=== PATIENT | male | born 1950 | race Caucasian/White ===

== ENCOUNTER 2025-03-03 08:35 | Observation (INO) | payer MEDICARE, BC ==
[2025-02-24 14:00] LABS: MEAN PLATELET VOLUME 7.5 FL (7.4-10.4); PRE OP HEMATOCRIT 40.8 % (42.0-52.0); PRE OP HEMOGLOBIN 13.6 g/dL (14.0-17.9); PRE OP PLATELET COUNT 318 X10'3 (140-440); PRE OP WHITE BLOOD COUNT 6.9 10'3 (4.8-10.8); RED CELL DISTRIBUTION WIDTH 14.5 % (11.5-14.5)
--- NOTE | 2025-02-24 14:06 | ELECTROCARDIOGRAPH REPORT ---
[facility] Test Date: 2025-02-24 Test Time: 14:03:54 Pat Name: GARY AMAYA Department: [facility]-PRE-OP Patient ID: [id number] Room: Gender: M [employer] Attendant: : 1950 Requested By: NATALIIA ROBERTS Order Number: [id number] Reading MD: Dr. GER Cline Measurements Intervals Martin Rate: 54 P: 49 AR: 156 QRS: 52 QRSD: 95 T: 46 QT: 476 QTc: 452 Interpretive Statements Sinus bradycardia Abnormal R-wave progression, early transition Electronically Signed On 02-24-2025 17:29:[address] GER Cline Please click the below link to view image of tracing.
[2025-02-24 14:19] LABS: CREATININE 0.98 MG/DL (0.60-1.10); PRE OP ALT 53 U/L (30-65); PRE OP ANION GAP 7 (8-16); PRE OP AST 36 U/L (10-37); PRE OP BILIRUB, TOTAL 0.5 MG/DL (0.0-1.0); PRE OP GLUCOSE 86 MG/DL (70-104); PRE OP POTASSIUM 4.2 MMOL/L (3.4-5.1); PRE OP SODIUM 141 MMOL/L (135-145); TOTAL CARBON DIOXIDE 28.9 MMOL/L (24-32); eGFR 75 ML/MIN
[~2025-03-03] VITALS: Ht 165.1 cm; Wt 70.9 kg
[2025-03-03] VITALS (21 sets, daily range): BP systolic 105–186; BP diastolic 54–100; PULSE 56–96; RESP 11–18; TEMP 96.3–98.4; O2SAT 75–100
[2025-03-03] MEDS: ceFAZolin 2gm/dext,iso 50mL 50 ML IV ONE (05:30)
[~2025-03-03 08:35] MED LIST: ASPI-10 PO; ATOR20TA PO; CHOND PO; GLUC PO; PANT40TA54 PO; SILD100T PO; [UNRECOGNIZED DRUG - OTHER] PO
[2025-03-03] MEDS: ringers solution, lacted 1,000 ML IV SCH ×2 (09:27→14:50)
[2025-03-03] MEDS ORDERED: BUPIVAcaine 2.5mg/ml inj 50ml vial (contains preservative) ONE ×2 (10:11→10:31)
[2025-03-03] MEDS ORDERED: BUPIVACAINE liposomal/PF 13.3 MG/ML 10mL vial IM ONE (10:29)
[2025-03-03] MEDS ORDERED: heparin 10,000 units/1 ML INJ ONE (11:00)
[2025-03-03] MEDS ORDERED: midazolam 1 mg/ML 2ml injection ONE (11:20)
[2025-03-03] MEDS ORDERED: rocuronium 10mg/ml inj IV ONE (11:41)
[2025-03-03] MEDS ORDERED: LIDOcaine 2% (20mg/ml) 5ml vial ONE (11:41)
[2025-03-03] MEDS ORDERED: dexamethasone sod phosphate 4mg/ml inj. ONE (11:41)
[2025-03-03] MEDS ORDERED: fentaNYL /PF 50mcg/ml 5ml ampule ONE (11:41)
[2025-03-03] MEDS ORDERED: ondansetron/PF 4mg/2ml inj ONE (11:41)
[2025-03-03] MEDS ORDERED: propofol inj 20 ML IV ONE (11:41)
[2025-03-03] MEDS ORDERED: glycopyrrolate 0.2mg/ml inj ONE (14:36)
[2025-03-03] MEDS ORDERED: mag hydrox/Alum hydrox/simeth 30ml oral suspension PO PRN (14:40)
[2025-03-03] MEDS ORDERED: HYDROcodone/acetaminophen 5mg/325mg tablet PO PRN (14:40)
[2025-03-03] MEDS ORDERED: HYDROmorphone inj. 0.5 MG/0.5 ML DISP.SYRIN IV PRN (14:40)
[2025-03-03] MEDS ORDERED: magnesium hydroxide 30ml (MOM) UD suspension PO PRN (14:40)
--- NOTE | 2025-03-03 14:44 | OPERATIVE REPORT ---
Operative Report Providers to ~ Date of Procedure: Mar 03, 2025 Pre-Operative Diagnosis: Prostate cancer Post-Operative Diagnosis SAME as PRE-Op Procedure Performed Robotic assisted radical prostatectomy. Surgeon: MD Christine Web Consultant PEDRO Armando perkins, MD Anesthesiologist: Armani Valerio Type of Anesthesia: General Findings: Prostate removed without issue. Complications None Prosthetics\Implants used: None Estimated Blood Loss: Less then 25 mL Specimen Removed: Prostate Description of Procedure: Patient was brought to the operating room, given a general anesthetic, and placed in the supine position. He was prepped and draped in the normal sterile fashion. A timeout was performed. A boyer catheter was placed. An incision was made above the umbilicus. Verass needle was used the insuflate the abdomen. Then an 8 ir[place]i robotic port was placed. We then placed 3 more robotic ports lateral to the median port. On the right a 12 iraqi offset assistant press operator port was placed under direct visualization. The patient was put into steep trendelenburg and the robot was docked. With the robot docked I used sharp dissection to drop the sigmoid colon. Once the sigmoid colon was dropped I made an incision in the peritoneum posteriorly and dissected to the seminal vesicles and vas deferns bilaterally. Once I was there I was able to dissect the posterior plan. Vas deferns were dissected bilaterally. I next turned my attention to the bladder. I dropped the bladder and approached the prostate from above opening the endopelvic fascia bilaterally with sharp dissection. Once this was completed and all pelvic floor muscles were brushed off the prostate I next turned to taking the bladder neck. Electrocautery was u sed to dissect the bladder neck until the catheter was reached, at which point the catheter was pulled up and the posterior bladder neck was dissected. Seminal vesicles and vas deferns bilaterally were both pulled up at this point. I next continued fully dissecting the posterior. The pedicles were taken at this point and the nerves were spared. I then used sharp dissection to take the dorsal venous complex, using a 3-0 v-lock suture to close the sinuses. The rest of the urethra was then taken with sharp dissection. The prostate was now free and moved out of the way, and double armed 3-0 v-loc suture was used to approximate the bladder neck to the urethra. I did this circumstantially until it was complete. This was tested with a new boyer catheter and was water tight. The prostate was placed in a specimen bag and the robot was undocked. The incision over the umbilicus was increased to allow the prostate to be removed, at which point it was removed. 2-0 vicryl suture was used to close the fascia, local anesthetic was injected into each wound, and 4-0 monocryl suture was used to close the skin with dermabond glue on the skin level. Counts repoted as correct: Yes NATALIIA ROBERTS MD Mar 03, 2025 14:44
[2025-03-03] MEDS ORDERED: ondansetron/PF 4mg/2ml inj IV PRN (14:50)
[2025-03-03] MEDS ORDERED: HYDROmorphone/PF 0.2 MG/ML SYRINGE IV PRN ×2 (14:50)
[2025-03-03] MEDS ORDERED: labetalol 20mg/4ml (5mg/ml) syringe IV PRN (14:50)
[2025-03-03] MEDS ORDERED: morphine 4 MG/ML inj SYRINge IV PRN (14:50)
[2025-03-03] MEDS ORDERED: non-formulary drug (Sildenafil Citrate* (Viagra*) 1 TAB) PO PRN (15:25)
[2025-03-03] MEDS ORDERED: multivitamins, therapeutics tablet PO SCH (15:25)
[2025-03-03] MEDS: hydrALAZINE 20mg/ml inj. IV PRN (15:52)
[2025-03-03] MEDS: ondansetron/PF 4mg/2ml inj IV PRN (16:37)
[2025-03-03] MEDS: heparin, porcine 5000 units/ml vial SQ SCH (19:29)
[2025-03-03] MEDS: docusate sod 100mg capsule PO SCH (20:00)
[2025-03-04 02:00] VITALS: BP 100/51; PULSE 85; RESP 17; TEMP 98.7; O2SAT 95
[2025-03-04 05:12] LABS: MEAN PLATELET VOLUME 8.0 FL (7.4-10.4); RED CELL DISTRIBUTION WIDTH 14.1 % (11.5-14.5)
[2025-03-04 05:24] LABS: CREATININE 1.18 MG/DL (0.60-1.10); TOTAL CARBON DIOXIDE 25.1 MMOL/L (24-32); eCRCL 49 ML/MIN; eGFR 61 ML/MIN
[2025-03-04 06:35] VITALS: BP 107/54; PULSE 70; RESP 14; TEMP 98.8; O2SAT 96
[2025-03-04 06:47] VITALS: O2SAT 96
--- NOTE | 2025-03-04 08:13 | DISCHARGE SUMMARY ---
Discharge Summary Providers to CC ~ Discharge Summary Assessment Patient is doing well after radical prostatectomy. Boyer catheter needs to remain in place for 1 week. No acute concerns at this time. Admission Diagnosis: Prostate cancer Hospital Course DATE OF ADMISSION: 03/03/25 DATE OF DISCHARGE: 03/04/25 Patient tolerated a diet, ambulated with pain controlled, and recovered as expected. Discharge Diagnosis\Comment: prostate cancer Operations\Procedures: 03/03/25: Robotic assisted laparoscopic radical prostatectomy. Consultants: None Complications: None Condition on DC: Stable Discharge Summary: Patient was admitted for post-operative care. Tolerated a diet and ambulated with pain controlled. Labs were reassuring. General: Awake and Alert, no acute distress. HEENT: Conjunctiva pink, Sclera clear, Mucus Membranes moist. Neck: Supple without masses and tenderness. Resp: Unlabored Heart: Regular Rate and rhythm Abdomen: Soft appropriately tender no organomegaly Extremities: No cyanosis,clubbing or edema. Skin: Warm and Dry. *Problems/Diagnosis: (1) Prostate cancer Status: Chronic Assessment & Plan: Prostate cancer s/p RALP. Doing well. Ready for discharge home. - Maintain boyer catheter for 1 week - No heavy lifting > 10 lbs - No strenuous exercise - May shower - No baths while catheter in place - Regular diet Total Time Spent on D/C: Up to 30 Minutes NATALIIA ROBERTS MD Mar 04, 2025 08:13
[2025-03-04] MEDS: aspirin 81mg, enteric-coated 1 TAB TABLET.DR PO SCH (08:20)
[2025-03-04 08:39] VITALS: RESP 14; O2SAT 96
[2025-03-04 08:59] VITALS: RESP 14; O2SAT 96
[2025-03-04 11:18] VITALS: BP 104/48; PULSE 75; RESP 16; TEMP 98.3; O2SAT 95
[2025-03-05] MEDS ORDERED: pantoprazole 40mg Tablet.DR PO SCH (08:00)
== END 2025-03-04 13:35 | disposition home or self-care (01) ==
LOC: PAS 08:35 → SUR 3N 14:40
PROVIDERS: ADMIT Urology; ATTEND Urology
DX: C61 Malignant neoplasm of prostate (principal); E78.5 Hyperlipidemia, unspecified; M19.90 Unspecified osteoarthritis, unspecified site; K21.9 Gastro-esophageal reflux disease without esophagitis; Z79.899 Other long term (current) drug therapy; Z98.890 Other specified postprocedural states
CPT/HCPCS: 55866; 80048; 80053; 82948; 86885; 86900; 86901; 93005; 96372; 96374; 96375; A4215; A4618; G0378; J0666; J2710; J3490; J7120; 36415; 85025; 87081; A4314; A4338; A4357; C1758; J0360; J1100; J1644; J2003; J2250; J2405; J2704; J3010